=== PATIENT | male | born 1960 | race Caucasian/White ===

== ENCOUNTER 2023-02-19 10:38 | Outpatient (CLI) | payer SELFPAY | END 2023-02-19 23:59 | disposition home or self-care (01) | LOC: RAD 10:38 | PROVIDERS: ATTEND Family Medicine | DX: Z13.6 Encounter for screening for cardiovascular disorders (principal); Z82.49 Family history of ischemic heart disease and other diseases of the circulatory system | CPT/HCPCS: 75571; 75572 ==